=== PATIENT | female | born 1940 | race Caucasian/White ===

== ENCOUNTER → 2017-02-26 | Outpatient (CLI) | payer MEDICARE, BC | END | disposition home or self-care (01) | LOC: PCVCIMAG 11:09 | PROVIDERS: ATTEND Internal Medicine | DX: I34.0 Nonrheumatic mitral (valve) insufficiency (principal); I50.9 Heart failure, unspecified; I10 Essential (primary) hypertension; E78.2 Mixed hyperlipidemia | CPT/HCPCS: 80061; 93005; 93306; G0463 ==

== ENCOUNTER → 2017-08-29 | Outpatient (CLI) | payer MEDICARE, BC | END | disposition home or self-care (01) | LOC: PCVCCLINIC 10:12 | PROVIDERS: ATTEND Internal Medicine | DX: I10 Essential (primary) hypertension (principal); E78.2 Mixed hyperlipidemia; I44.30 Unspecified atrioventricular block; I45.10 Unspecified right bundle-branch block; Z98.890 Other specified postprocedural states; Z87.891 Personal history of nicotine dependence; Z79.82 Long term (current) use of aspirin; Z79.899 Other long term (current) drug therapy | CPT/HCPCS: 80061; 93005; G0463 ==

== ENCOUNTER → 2018-06-05 | Outpatient (CLI) | payer MEDICARE, BC | END | disposition home or self-care (01) | LOC: PCVCCLINIC 11:27 | PROVIDERS: ATTEND Internal Medicine | DX: I10 Essential (primary) hypertension (principal); E78.5 Hyperlipidemia, unspecified; Z98.890 Other specified postprocedural states; Z79.899 Other long term (current) drug therapy; Z79.82 Long term (current) use of aspirin; Z87.891 Personal history of nicotine dependence | CPT/HCPCS: 80061; 93005; G0463 ==

== ENCOUNTER → 2018-12-09 | Outpatient (CLI) | payer MEDICARE, BC ==
--- NOTE | 2018-12-09 11:43 | PCVCIMAG ---
APPROVED REPORT Study performed: 12/09/2018 10:31:21 EXAM: Comprehensive 2D, Doppler, and color-flow Echocardiogram Patient Location: Echo lab Room #: 2Status: routine BSA: 1.68 HR: 74 bpmBP: 142/82 mmHg Rhythm: NSR Other Information Study Quality: Good Risk Factors: Cardiac Risk Factors: HTN, Hyperlipidemia Indications Mitral Valve Disease Mitral Valve Prolapse Mitral Valve repair #29 Rock annuloplasty ring 2D Dimensions IVSd: 9.26 (7-11mm)LVOT Diam: 20.44 (18-24mm) LVDd: 44.23 mm PWd: 8.49 (7-11mm)Ascending Ao: 27.71 (22-36mm) LVDs: 28.66 (25-40mm) Left Atrium: 40.29 (27-40mm) Aortic Root: 28.77 mm LV Single Plane 4CH: 52.85 % LV Single Plane 2CH: 53.82 % Biplane EF: 53.0 % Volumes Left Atrial Volume (Systole) Single Plane 4CH: 55.70 mLSingle Plane 2CH: 33.56 mL Biplane LA Volume: 45.00 mLLA ESV Index: 27.00 mL/m2 Aortic Valve LVOT Max P.01 mmHg LVOT Max V: 1.00 m/s NEELIMA Vmax: 2.80 cm2 Mitral Valve MV Peak Gr.: 12.38 mmHg MV Mean Gr.: 5.85 mmHgE/A Ratio: 1.1 MV Decel. Time: 259.95 ms MV E Max Anjel.: 1.70 m/s MV A Anjel.: 1.52 m/s MV Max Anjel.: 1.76 m/s MV Mean Anjel.: 1.13 m/s MV VTI: 509.68 mm MV PHT: 94.60 ms MVA (PHT): 2.18 cm2 IVRT: 98.62 ms TDI E/Lateral E': 21.25E/Medial E': 42.50 Medial E' Anjel.: 0.04 m/s Lateral E' Anjel.: 0.08 m/s Pulmonary Valve PV Peak Anjel.: 0.65 m/sPV Peak Gr.: 1.67 mmHg Tricuspid Valve TR Peak Anjel.: 2.83 m/s TR Peak Gr.: 32.13 mmHg TV Vmax: 0.56 m/sPA Pressure: 39.00 mmHg Left Ventricle The left ventricle is normal size. There is normal LV segmental wall motion. There is normal left ventricular wall thickness. The left ventricular systolic function is normal. The left ventricular ejection fraction is within the normal range. LVEF is 50-55%. This study is not technically sufficient to allow evaluation of the LV diastolic function. Right Ventricle The right ventricle is normal size. The right ventricular systolic function is normal. Atria Left atrium is mildly dilated. The right atrium size is normal. Aortic Valve The aortic valve is mildly sclerotic Mild aortic regurgitation is present. There is no aortic valvular stenosis. Mitral Valve Posterior miitral leaflet repair, #29 Jono annuloplasty ring There is no mitral valve regurgitation noted. No evidence of mitral valve stenosis. Tricuspid Valve The tricuspid valve is normal in structure. Moderate tricuspid regurgitation with a PA pressure of 39 mmHg. Pulmonic Valve The pulmonary valve is normal in structure. Trace pulmonic regurgitation. Great Vessels The aortic root is normal in size. The ascending aorta is normal in size. IVC is normal in size and collapses >50% with inspiration. Pericardium There is no pericardial effusion. There is no pleural effusion. <Conclusion> The left ventricular systolic function is normal. There is normal LV segmental wall motion. LVEF 50-55%. Left atrium is mildly dilated. The aortic valve is minimally sclerotic. Mild aortic regurgitation, no stenosis. Posterior miitral leaflet repair, #29 Brilliant annuloplasty ring. No mitral valve regurgitation. Moderate tricuspid regurgitation with a pulmonary artery pressure of 39 mmHg. There is no pericardial effusion.
== END | disposition home or self-care (01) ==
LOC: PCVCIMAG 10:26
PROVIDERS: ATTEND Internal Medicine
DX: I08.2 Rheumatic disorders of both aortic and tricuspid valves (principal); E78.5 Hyperlipidemia, unspecified; I11.0 Hypertensive heart disease with heart failure; I50.9 Heart failure, unspecified; Z98.890 Other specified postprocedural states; Z87.891 Personal history of nicotine dependence; Z79.82 Long term (current) use of aspirin
CPT/HCPCS: 36415; 80061; 93005; 93306; G0463

== ENCOUNTER → 2019-06-11 | Outpatient (CLI) | payer MEDICARE, BC | END | disposition home or self-care (01) | LOC: PCVCCLINIC 14:12 | PROVIDERS: ATTEND Internal Medicine | DX: I10 Essential (primary) hypertension (principal); E78.5 Hyperlipidemia, unspecified; Z98.890 Other specified postprocedural states | CPT/HCPCS: 36415; 80061; 93005; G0463 ==